=== PATIENT | male | born 1975 | race African-American/Black ===

== ENCOUNTER 2017-01-07 17:35 | Emergency (ER) | payer OTHER, MEDICAID ==
[~2017-01-07 17:35] MED LIST: KEFLEX500 MG PO; LORTAB 10-5001 EACH PO
== END 2017-01-07 19:05 | disposition home or self-care (01) ==
LOC: CED 17:35
DX: S39.92XA Unspecified injury of lower back, initial encounter (principal); F17.200 Nicotine dependence, unspecified, uncomplicated; V49.40XA Driver injured in collision with unspecified motor vehicles in traffic accident, initial encounter; Y93.89 Activity, other specified; Y92.410 Unspecified street and highway as the place of occurrence of the external cause
CPT/HCPCS: 99283